=== PATIENT | male | born 1990 | race Hispanic/Latino ===

== ENCOUNTER 2018-05-22 13:24 | Emergency (ER) | payer BC ==
[2018-05-22 13:35] VITALS: BMI 34.2
[2018-05-22] MEDS ORDERED: cefTRIAXone (Rocephin) 250 mg Inj IM STA (13:47)
[2018-05-22 14:31] LABS: URINE BILIRUBIN NEGATIVE (NEGATIVE); URINE BLOOD NEGATIVE (NEGATIVE); URINE GLUCOSE (UA) NEGATIVE (NEGATIVE); URINE LEUKOCYTE ESTERASE NEGATIVE Leu/uL (NEGATIVE); URINE PROTEIN NEGATIVE mg/dL (<30 mg/dL); URINE UROBILINOGEN 0.2 E.U./dL (<1 E.U./dL)
[2018-05-22 14:35] LABS: URINE APPEARANCE CLEAR (CLEAR); URINE COLOR YELLOW (YELLOW)
--- NOTE | 2018-05-22 15:01 | ED PDOC ---
Arrival/HPI - General Chief Complaint: Abdominal Pain Time Seen by Provider: 05/22/18 13:36 Historian: Patient - History of Present Illness Narrative History of Present Illness (Text): 05/22/18 14:58 28 year old male, with no significant past medical history, who presents to the emergency department for an STD check. Patient notes irritation to tip of penis and burning with urination. Patient wants to be tested for Syphilis, Hepatitis, and HIV. Patient denies any fever, chills, chest pain, shortness of breath, nausea, vomiting, diarrhea, back pain, neck pain, headache, dizziness, or any other complaints. Time/Duration: Prior to Arrival Symptom Onset: Gradual Symptom Course: Unchanged Activities at Onset: Light Context: Home Past Medical History - Provider Review Nursing Documentation Reviewed: Yes - Infectious Disease Hx of Infectious Diseases: None - Renal Other/Comment: kidney surgery - Genitourinary/Gynecological Other/Comment: cryptorchidism - Psychiatric Hx Substance Use: Yes - Surgical History Other/Comment: testicular surgery. kidney sx - Anesthesia Hx Anesthesia: Yes Hx Anesthesia Reactions: No Hx Malignant Hyperthermia: No Family/Social History - Physician Review Nursing Documentation Reviewed: Yes Family/Social History: Unknown Family HX Smoking Status: Never Smoked Hx Alcohol Use: Yes Frequency of alcohol use: Socially Hx Substance Use: Yes Substance used: marijuana Allergies/Home Meds Allergies/Adverse Reactions: Allergies peanut Adverse Reaction (Verified 05/22/18 13:35) ANAPHYLAXIS Home Medications: Home Meds Medication Instructions Recorded Confirmed No Known Home Med 05/22/18 05/22/18 Review of Systems - Physician Review All systems were reviewed & negative as marked: Yes - Review of Systems Constitutional: Normal Eyes: Normal ENT: Normal Respiratory: Normal. absent: SOB, Cough Cardiovascular: Normal. absent: Chest Pain Gastrointestinal: Normal. absent: Abdominal Pain, Diarrhea, Nausea, Vomiting Genitourinary Male: Dysuria Musculoskeletal: Normal. absent: Back Pain, Neck Pain Skin: Other (irritation to tip of penis) Neurological: Normal. absent: Headache Endocrine: Normal Hemo/Lymphatic: Normal Psychiatric: Normal Physical Exam Vital Signs Temp Pulse Resp BP Pulse Ox 05/22/18 15:32 76 18 118/76 99 05/22/18 13:24 97.8 F 68 18 124/76 98 - Systems Exam Head: Present: Atraumatic, Normocephalic Pupils: Present: PERRL Extroacular Muscles: Present: EOMI Conjunctiva: Present: Normal Mouth: Present: Moist Mucous Membranes Neck: Present: Normal Range of Motion Respiratory/Chest: Present: Clear to Auscultation, Good Air Exchange. No: Respiratory Distress, Accessory Muscle Use Cardiovascular: Present: Regular Rate and Rhythm, Normal S1, S2. No: Murmurs Abdomen: No: Tenderness, Distention, Peritoneal Signs Genitourinary Male: Present: Erythema (redness to urethra distally). No: Penile Swelling, Testicle Swelling Back: Present: Normal Inspection Upper Extremity: Present: Normal Inspection. No: Cyanosis, Edema Lower Extremity: Present: Normal Inspection. No: Edema Neurological: Present: GCS=15, CN II-XII Intact, Speech Normal Skin: Present: Warm, Dry, Normal Color. No: Rashes Psychiatric: Present: Alert, Oriented x 3, Normal Insight, Normal Concentration Medical Decision Making ED Course and Treatment: 05/22/18 15:05 Impression: 28 year old female presents to the emergency department for STD check. Plan: -- Labs -- Morphine -- Zofran -- Sodium Chloride -- Reassess and disposition Progress Notes: - Lab Interpretations Lab Results: Lab Results 05/22/18 14:15: C.trachomatis RNA (TMA) Not detected, N.gonorrhoeae RNA (TMA) Not detected 05/22/18 14:15: Urine Color Yellow, Urine Appearance Clear, Urine pH 6.0, Ur Specific [place] 1.010, Urine Protein Negative, Urine Glucose (UA) Negative, Urine Ketones Negative, Urine Blood Negative, Urine Nitrate Negative, Urine Bilirubin Negative, Urine Urobilinogen 0.2, Ur Leukocyte Esterase Negative 05/22/18 13:47: HIV 1&2 Ag/Ab, 4th Gen Nonreactive 05/22/18 13:47: RPR Nonreactive 05/22/18 13:47: Hepatitis A IgM Ab Negative, Hep Bs Antigen Negative, Hep B Core IgM Ab Negative, Hepatitis C Antibody Negative - Medication Orders Current Medication Orders: Discontinued Medications Azithromycin (Zithromax) 1,000 mg PO STAT STA PRN Reason: Protocol Stop: 05/22/18 13:48 Last Admin: 05/22/18 15:08 Dose: 1,000 mg Ceftriaxone Sodium (Rocephin) 250 mg IM STAT STA PRN Reason: Protocol Stop: 05/22/18 13:48 Last Admin: 05/22/18 15:08 Dose: 250 mg IM Administration Charges Document 05/22/18 15:08 GMD (Rec: 05/22/18 15:08 GMD [id number]) Injection Site MAR Injection Site Left Deltoid Charges for Administration # of IM Administrations 1 - Scribe Statement The provider has reviewed the documentation as recorded by the Scribe Griselda Fields All medical record entries made by the Scribe were at my direction and personally dictated by me. I have reviewed the chart and agree that the record accurately reflects my personal performance of the history, physical exam, medical decision making, and the department course for this patient. I have also personally directed, reviewed, and agree with the discharge instructions and disposition. Disposition/Present on Arrival - Present on Arrival Any Indicators Present on Arrival: No History of DVT/PE: No History of Uncontrolled Diabetes: No Urinary Catheter: No History of Decub. Ulcer: No History Surgical Site Infection Following: None - Disposition Have Diagnosis and Disposition been Completed?: Yes Diagnosis: Urethritis Disposition: HOME/ ROUTINE Disposition Time: 18:03 Patient Plan: Discharge Condition: GOOD Discharge Instructions (ExitCare): Urethritis (DC) Additional Instructions: Willie - We will contact you by phone about the test results that will come back in a few days. You were treated for the most common STD's, Chlamydia and Gonorrhea, tested for Hepatitis,Syphilis and HIV. Return to us if any problems. Syed- Dr. Bart Quinn Forms: [employer] (Norwegian)
[2018-05-22 15:05] VITALS: RESP 18; TEMP 97.8
[2018-05-22 15:32] VITALS: BP 118/76; PULSE 76; O2SAT 99
[2018-05-22 21:13] LABS: HEPATITIS B SURFACE AG Negative (NEGATIVE)
[2018-05-22 21:19] LABS: HEPATITIS A IGM NEGATIVE (NEGATIVE); HEPATITIS B CORE AB NEGATIVE (NEGATIVE)
[2018-05-22 21:31] LABS: HEPATITIS C ANTIBODY NEGATIVE (NEGATIVE)
== END 2018-05-22 15:32 | disposition home or self-care (01) ==
LOC: ED 13:24
DX: N34.2 Other urethritis (principal)
CPT/HCPCS: 80074; 81003; 86592; 87389; 87491; 87591; 96372; 99284; J0696